=== PATIENT | male | born 1955 | race Caucasian/White ===

== ENCOUNTER 2018-11-15 00:12 | Emergency (ER) | payer SELFPAY ==
[~2018-11-15] VITALS: Ht 170.2 cm; Wt 79.5 kg
[2018-11-15] MEDS ORDERED: OXYC5 PO (01:01)
[2018-11-15] MEDS ORDERED: GABA-531 PO (01:01)
[2018-11-15] MEDS ORDERED: MELA5TAB3 PO (01:01)
[2018-11-15] MEDS ORDERED: PROP10TA10 PO (01:01)
[2018-11-15] MEDS ORDERED: HYD25 PO (01:01)
[2018-11-15] MEDS ORDERED: BACL10TA PO (01:01)
[2018-11-15] MEDS ORDERED: TRIL8 PO (01:01)
[2018-11-15] MEDS ORDERED: LANS30 PO (01:01)
[2018-11-15] MEDS ORDERED: TRIH5TAB2 PO (01:01)
[2018-11-15] MEDS ORDERED: OXYB5 PO (01:01)
[2018-11-15] MEDS ORDERED: LITH8SOL PO (01:01)
[2018-11-15 01:20] VITALS: BP 139/89
== END 2018-11-15 01:56 | disposition home or self-care (01) ==
LOC: EMS 00:12
DX: S12.9XXD Fracture of neck, unspecified, subsequent encounter (principal); Z47.89 Encounter for other orthopedic aftercare; Z79.899 Other long term (current) drug therapy; X58.XXXD Exposure to other specified factors, subsequent encounter